=== PATIENT | male | born 1995 | race Caucasian/White ===

== ENCOUNTER 2019-09-30 07:55 | Emergency (ER) | payer MEDICAID, OTHER ==
[~2019-09-30] VITALS: Ht 182.9 cm; Wt 108.8 kg
[2019-09-30 07:55] VITALS: BP 140/78
[2019-09-30] MEDS ORDERED: thera flu (08:02)
[2019-09-30] MEDS ORDERED: BENZ200C70 PO (08:16)
[2019-09-30] MEDS ORDERED: IBUP-1022 PO (08:16)
== END 2019-09-30 08:30 | disposition home or self-care (01) ==
LOC: M ED 07:55
DX: R05 Cough (principal); J11.1 Influenza due to unidentified influenza virus with other respiratory manifestations; F17.200 Nicotine dependence, unspecified, uncomplicated

== ENCOUNTER 2024-05-03 07:52 | Emergency (ER) | payer MEDICAID, SELFPAY ==
[~2024-05-03] VITALS: Ht 182.9 cm; Wt 118.0 kg
[~2024-05-03 07:52] MED LIST: BENZ200C70 PO; IBUP-1022 PO; thera flu
[2024-05-03 07:53] VITALS: TEMP 98; O2SAT 98
[2024-05-03] MEDS ORDERED: CYCL-707 PO (11:05)
[2024-05-03] MEDS ORDERED: IBUP-1022 PO (11:05)
[2024-05-03 11:10] VITALS: BP 140/78
== END 2024-05-03 11:11 | disposition home or self-care (01) ==
LOC: M ED 07:52
DX: M54.50 Low back pain, unspecified (principal); F17.200 Nicotine dependence, unspecified, uncomplicated

== ENCOUNTER → 2024-10-23 | Outpatient (CLI) | payer OTHER ==
[~2024-10-23] MED LIST changes: +CYCL-707 PO
== END ==
LOC: M PLALAB 10:15
PROVIDERS: ATTEND Student in an Organized Health Care Education/Training Program
DX: M25.531 Pain in right wrist (principal); M25.512 Pain in left shoulder; R93.6 Abnormal findings on diagnostic imaging of limbs

== ENCOUNTER → 2024-11-08 | Outpatient (REF) | payer OTHER ==
[2024-11-08 15:17] LABS: BASO # 0.1 10^3/uL (0.0-0.2); BASO % 0.5 % (0.0-1.0); EOS # 0.1 10^3/uL (0.0-0.5); EOS % 1.2 % (0.0-3.0); HEMATOCRIT 51.2 % (42.0-52.0); HEMOGLOBIN 17.4 g/dl (13.5-17.5); LYMPH # 2.7 10^3/uL (1.5-5.0); LYMPH % 26.5 % (24.0-44.0); MEAN CORPUSCULAR HEMOGLOBIN 30.2 pg (27.0-33.0); MEAN CORPUSCULAR VOLUME 88.7 fl (80.0-96.0); MONO # 0.6 10^3/uL (0.0-0.8); NEUTROPHILS # 6.7 10^3/uL (1.5-8.5); NEUTROPHILS % 65.2 % (36.0-66.0); PLATELET COUNT, AUTOMATED 213 10^3/uL (150-450); RED BLOOD COUNT 5.77 10^6/uL (4.30-6.10); WHITE BLOOD COUNT 10.2 10^3/uL (4.0-10.0)
[2024-11-08 15:21] LABS: ALBUMIN 4.1 G/DL (3.2-5.2); ALKALINE PHOSPHATASE 55 U/L (40-129); ALT/SGPT 28 U/L (7.0-40); AST/SGOT 22 U/L (<34); BILIRUBIN,TOTAL 1.4 MG/DL (0.3-1.2); BLOOD UREA NITROGEN 14 MG/DL (9-23); CALCIUM LEVEL 9.3 MG/DL (8.5-10.1); CARBON DIOXIDE LEVEL 29 MMOL/L (20-31); CHLORIDE LEVEL 101 MMOL/L (98-107); CHOLESTEROL LEVEL 97 MG/DL (<200); CHOLESTEROL RISK RATIO 2.98 (<5); GLOMERULAR FILTRATION RATE > 60.0 (>60); GLUCOSE, FASTING 81 MG/DL (60-100); HDL CHOLESTEROL 32.5 MG/DL (>40); LDL CHOLESTEROL 45.9 MG/DL (<100); NON-HDL-C 64.5 MG/DL; POTASSIUM SERUM 4.5 MMOL/L (3.5-5.1); SODIUM LEVEL 138 MMOL/L (136-145); THYROID STIMULATING HORMONE 1.774 uIU/ML (0.55-4.78); TRIGLYCERIDES LEVEL 93 MG/DL (<150)
[2024-11-08 15:32] LABS: HEMOGLOBIN A1c 4.9 % (4.0-6.0)
== END ==
LOC: M LAB REF 14:29
PROVIDERS: ATTEND Student in an Organized Health Care Education/Training Program
DX: K21.9 Gastro-esophageal reflux disease without esophagitis (principal); Z68.37 Body mass index [BMI] 37.0-37.9, adult